=== PATIENT | male | born 1960 | race Caucasian/White ===

== ENCOUNTER 2019-07-23 09:53 | Emergency (ER) | payer SELFPAY ==
[2019-07-23 10:17] VITALS: BP 157/93; PULSE 69; RESP 16; TEMP 37.1; O2SAT 98
--- NOTE | 2019-07-23 10:51 | ED.SKABFB ---
HPI - Skin/Abscess/Foreign Bdy General Chief complaint: Skin/Abscess/Foreign Body Stated complaint: Possible spider bite Time Seen by Provider: 07/23/19 10:23 Source: patient and RN notes reviewed Mode of arrival: ambulatory Limitations: no limitations History of Present Illness HPI narrative: Patient presents today complaining of possible abscess to his right elbow x1 week. Reports he believes he may have a spider bite that has developed into an infection. Denies any injury. Reports redness and swelling that has improved throughout the week after he has been applying ice and taking Tylenol. No pain with range of motion, but pain with palpation of the swollen area. Denies numbness or tingling in the arm or hand. MD complaint: abscess/boil Related Data Allergies Allergy/AdvReac Type Severity Reaction Status Date / Time No Known Allergies Allergy Mild Verified 07/23/19 10:21 Review of Systems Review of Systems: Narrative: CONSTITUTIONAL: Denies body aches, fever, chills, or sweats. EYES: Denies visual changes, redness, or discharge. ENT: Denies rhinorrhea, congestion, sore throat, or otalgia. CARDIOVASCULAR: Denies chest pain, palpitations, or edema. RESPIRATORY: Denies cough or dyspnea. GASTROINTESTINAL: Denies abdominal pain, nausea, vomiting, or diarrhea. GENITOURINARY: Denies dysuria or hematuria. SKIN: Denies rash, itching, or wounds. MUSCULOSKELETAL: Denies back pain. + Redness and swelling to right elbow NEUROLOGIC: Denies headache, numbness, tingling, or weakness. PSYCH: Denies depression or anxiety. PMFSH Social History Social History Gender identity (if verbalized by the patient): Male Comments At time of signature, I have reviewed and agree with nursing past medical, surgical, social and family history unless otherwise noted. Please see nursing chart for further information. There is no relevant family history pertinent to the presenting complaint Exam Narrative: Exam Narrative: GENERAL: Well-appearing, well-nourished, and in no acute distress. HEAD: Normocephalic, atraumatic. EYES: EOMI. No redness or drainage. Conjunctivae normal. ENT: Mucous membranes pink and moist. NECK: Normal AROM. CHEST: No respiratory distress. EXTREMITIES: Right elbow: Normal AROM without increased pain. ~[id number] area of erythema and induration posterior elbow. Olecranon bursa does not seem inflamed. ~2x2cm area of fluctuance with surrounding induration to posterior proximal forarm and arm is tender only in this area. Distal sensation intact. Capillary refill normal. Radial pulse normal. All other extremities grossly normal. SKIN: Warm, dry. Capillary refill normal. Normal skin turgor. NEURO: No focal deficits. Alert and oriented x3. Gait steady. PSYCH: Normal affect. No signs of depression or anxiety. Course Vital Signs Vital signs: Vital Signs Temperature 98.8 F 07/23/19 10:17 Pulse Rate 69 07/23/19 10:17 Respiratory Rate 16 07/23/19 10:17 Blood Pressure 157/93 H 07/23/19 10:17 Pulse Oximetry 98 07/23/19 10:17 Temperature 98.8 F 07/23/19 10:17 Pulse Rate 69 07/23/19 10:17 Respiratory Rate 16 07/23/19 10:17 Blood Pressure 157/93 H 07/23/19 10:17 Pulse Oximetry 98 07/23/19 10:17 Reviewed. Pt has been instructed to follow up with his PCP regarding his elevated blood pressure today. Procedures Abscess I/D upper extremity: Date of Incision: 07/23/19 Time of Incision: 10:51 Side (if applicable): right Sedation/analgesia: none Local Anesthetic: lidocaine 1% Amount of anesthesia used (mL): 1 Technique: incised with #11 blade Amount of fluid expressed (mL): 5 Irrigation: Yes Packing used?: none I&D Results: Pus and Blood Abcess I&D Additional Comments: Cleansed with Betadine prior to procedure. Patient tolerated procedure well. Dressed with nonadherent dressing. MDM - Skin/Abscess/Foreign Bdy Di
== END 2019-07-23 11:05 | disposition home or self-care (01) ==
PROVIDERS: Emergency Provider Nurse Practitioner
DX: L02.413 Cutaneous abscess of right upper limb (principal)
CPT/HCPCS: 10060; 87070; 87075; 87077; 87186; 87205; 99213; G0463

== ENCOUNTER 2023-10-28 16:42 | Outpatient (RCR) | payer OTHER, SELFPAY ==
--- NOTE | 2023-10-28 17:34 | PTOPEVAL1 ---
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 He states that he was stepping up to get into the lift on the truck and slipped due to having a wet boot. Pt. reports that pain worsened after several days and went to urgent care. He states that he had another fall 08/29/23 while at work and that is when he saw the doctor. He reports that pain is located across the low back and radiates into the l.e. He reports that he tried a steroid pack with no relief. He reports that pain is worsened with prolonged standing and walking. He reports that he cannot stand for more than 30 minutes before pain worsens in his back and legs. He reports that pain will occasionally wake him at night. He reports that his goal is to decrease pain and be able to return to full duty work. Reported Pain Level Pain Score 6: Self Report Assessment PT Clinical Summary Pt. is a 63 year old male who enters the clinic with a medical diagnosis of back pain due to T11 and 12 HNP. He presents with impaired l.e. strength, impaired postural awareness, impaired flexibility, pain and functional decline. Continued skilled PT is indicated in order to improve these areas to allow the pt. to be able to participate in all IADL's with improved comfort and return to work related duties without limitation. Plan of Care Interventions Electrical Stimulation,Gait Training,Hot Pack/Cold Pack,Manual Therapy,Mechanical Traction,Neuro Re- education,Patient/Caregiver Educati,Therapeutic Activities,Therapeutic Exercise PT Services Indicated Yes Treatment Frequency and 3x/week x 9 visits Duration These treatments will address the objective and functional deficits as defined above. The patient will be advanced safely and appropriately in order for the patient to progress towards his/her prior level of function. Additional exercises will be introduced and as well as a comprehensive home exercise program upon discharge, if needed, ?to ensure carryover of functional gains achieved in the clinic. This treatment plan has been reviewed and agreement upon by the patient.
--- NOTE | 2023-10-28 17:35 | OPREHPOC ---
Outpatient Therapy Plan of Care This is a Multidisciplinary Plan of Care that may contain components documented by all disciplines (PT, OT, and ST.) PT Problem 1 PT Problem #1 Knowledge Deficit PT Goal 1 Goal Pt. will be independent with a HEP addressing strength and trunk mobility. Target Visit 2 PT Problem 2 PT Problem #2 Impaired Flexibility PT Goal 1 Goal Pt. will present at 10 degrees from full knee extension with the 90/90 test. Target Visit 5 PT Problem 3 PT Problem #3 Impaired Range of Motion PT Goal 1 Goal Pt. will be able to reach to the floor to safely lift 20# object from floor to waist for 10 reps Target Visit 10 PT Problem 4 PT Problem #4 Impaired Functional Mobil PT Goal 1 Goal Pt. will demonstrate less than 20% limitation on the Modified Oswestry indicating significant functional improvement. Target Visit 10 PT Problem 5 PT Problem #5 Pain PT Goal 1 Goal Pt. will report pain levels at 2/10 at worst and report being able to stand for duration of 1 hour. Target Visit 9
--- NOTE | 2023-11-06 14:38 | PCPTNOTE ---
Patient cancelled session. He reports something came up and cannot make it today.
--- NOTE | 2023-11-20 17:49 | PTOPEVAL1 ---
Assessment and note entered by Britton Pollock Evaluation Information Assessment Status Progress Diagnosis T11 and T12 HNP and radiculopathy ICD-10 Condition Codes (PT) M54.6,Pain in low back M54.50 Onset 05/24/23 Subjective Information Pt. reports that he is having less intense pain. He states that he is still using his cane outdoors and for long distances, but is no longer using the cane in the home. He reports that he would like to continue treatment to help further reduce pain and be able to walk without the cane. Reported Pain Level Pain Score 3: Self Report Assessment PT Clinical Summary Pt. has attended a total of 9 treatment sessions. Treatment thus far has consisted of therapeutic exercise focused on trunk mobility and core stability, modalities to addressing pain and thoracic mobility, and manual techniques addressing tissue mobility. He presents with improvements in regards to gait mechanics and strength. Despite these improvements continue to notice weakness of the core and l.e., as well as continued need for an AD for long distance activities. Continued skilled PT is indicated to further improve strength and to advance to ambulation without an AD for return to work. Plan of Care Interventions Electrical Stimulation,Gait Training,Hot Pack/Cold Pack,Manual Therapy,Mechanical Traction,Neuro Re- education,Patient/Caregiver Educati,Therapeutic Activities,Therapeutic Exercise PT Services Indicated Yes Treatment Frequency and continue 3x/week x 9 visits focusing on advancing Duration toward improved gait and strength. These treatments will address the objective and functional deficits as defined above. The patient will be advanced safely and appropriately in order for the patient to progress towards his/her prior level of function. Additional exercises will be introduced and as well as a comprehensive home exercise program upon discharge, if needed, ?to ensure carryover of functional gains achieved in the clinic. This treatment plan has been reviewed and agreement upon by the patient.
--- NOTE | 2023-11-27 16:54 | PCPTNOTE ---
Cancelled session due to work schedule.
--- NOTE | 2023-12-17 17:10 | PCPTNOTE ---
Patient did not show up for scheduled appointment this date. -Jagruti Woodard, PT
== END 2024-01-26 23:59 | disposition home or self-care (01) ==
LOC: CHSPT 16:42
DX: M54.14 Radiculopathy, thoracic region (principal)
CPT/HCPCS: 97012; 97014; 97110; 97140; 97161; G0283